=== PATIENT | male | born 1970 ===

== ENCOUNTER 2019-02-11 12:32 | Day surgery (SDC) | payer OTHER ==
[~2019-02-11 12:32] MED LIST: CELEXA10 MG PO
== END 2019-02-11 22:50 | disposition home or self-care (01) ==
LOC: CIR.AMB 12:32
DX: S52.592K Other fractures of lower end of left radius, subsequent encounter for closed fracture with nonunion (principal)
CPT/HCPCS: 25405; 20902; C1776